=== PATIENT | male | born 2000 | race African-American/Black ===

== ENCOUNTER → 2023-10-12 | Emergency (ER) | payer SELFPAY ==
[~2023-10-12] MED LIST: NA CHLORIDE 0.9% 1,000 ML ONE; ONDANSETRON 4 MG/2 ML VIAL ONE
[2023-10-12 20:55] LABS: Hematocrit 44.9 % (39.6-49.0); Lymphocytes % 27.8 % (15.3-44.8); MCV 80.3 fL (80-100); MPV 8.8 fL (7.6-11.3); Platelets 196 thou/uL (152-406); RBC Red Blood Cell Count 5.59 M/uL (4.33-5.43)
[2023-10-12 20:58] LABS: Protime INR 1.02
[2023-10-12 21:11] LABS: ALT/SGPT 41 U/L (16-61); Albumin 3.8 g/dL (3.4-5.0); Alkaline Phosphatase 70 U/L (45-117); BUN Blood Urea Nitrogen 18 mg/dL (7-18); Bicarbonate 21 mEq/L (21-32); Bilirubin Total 0.4 mg/dL (0.2-1.0); Glomerular Filtration Rate 74 ml/min (=/>90); Glucose Level 154 mg/dL (74-106); Protein, Total 7.9 g/dL (6.4-8.2); Sodium Level 135 mEq/L (136-145)
[2023-10-12 21:23] LABS: AST/SGOT 48 U/L (15-37); Bilirubin Direct < 0.1 mg/dL (0-0.2); Bilirubin Indirect, Calculated ND mg/dL (0.2-0.8)
--- NOTE | 2023-10-13 00:11 | ER ---
Nurse's Notes [facility] Name: Jack Newell Age: 23 yrs Sex: Male : 2000 Arrival Date: 10/12/2023 Time: 20:05 Bed 18 Private MD: Diagnosis: Acute opiate overdose, unintentional overdose Presentation: 10/12 20:23 Chief complaint: EMS states: EMS CALLED BY OTHER INTOXICATED INDIVIDUALS FOR bp RECREATIONAL OD, H/O SAME. [facility] REFUSING TO GIVE PT NAME TO EMS. Coronavirus screen: At this time, the client does not indicate any symptoms associated with coronavirus-19. Ebola Screen: No symptoms or risks identified at this time. Initial Sepsis Screen: Does the patient meet any 2 criteria? No. Patient's initial sepsis screen is negative. Does the patient have a suspected source of infection? No. Patient's initial sepsis screen is negative. Risk Assessment: Do you want to hurt yourself or someone else? Unable to obtain. Onset of symptoms is unknown. Care prior to arrival: Medication(s) given: NARCAN 1MG. 20:23 Method Of Arrival: EMS: [facility] bp 20:23 Acuity: FORTUNATO 3 bp 20:27 Care prior to arrival: IV initiated. 20 GA, in the right antecubital area. as6 Triage Assessment: 20:27 General: Appears in no apparent distress. Behavior is drowsy. Pain: Unable to use pain as6 scale. Does not appear to understand pain scale. Historical: - Allergies: 20:25 No Known Allergies; bp - Immunization history:: Adult Immunizations unknown. - Social history:: Smoking status: unknown. Screenin:20 [facility] ED Fall Risk Assessment (Adult) History of falling in the last 3 months, la4 including since admission No falls in past 3 months (0 pts) Confusion or Disorientation Yes (5 pts) Intoxicated or Sedated No (0 pts) Impaired Gait No (0 pts) Mobility Assist Device Used No (0 pt) Altered Elimination No (0 pt) Score/Fall Risk Level 0 - 2 = Low Risk Oriented to surroundings, Provided non-skid footwear, Hourly rounding (assess needs \\T\\ fall precautionary measures) done. Abuse screen: Denies threats or abuse. Denies injuries from another. Nutritional screening: No deficits noted. Tuberculosis screening: No symptoms or risk factors identified. Assessment: 22:31 Reassessment: No report received on patient. Patient in room sleep on right side off la4 not monitored. Pt aroused by gentle touch and verbal stimulation. Pt able to give his name of "Nate" but states that he does not recall what happened or how he got to the hospital. Pt states that he lives in [place] but got to [place] today for the holidays Patient denies pain at this time. General: Appears in no apparent distress. Behavior is cooperative, appropriate for age. Neuro: Jackson Agitation-Sedation Scale (RASS): 0 - Alert and Calm Level of Consciousness is obeys commands. Cardiovascular: No deficits noted. Denies chest pain, Heart tones S1 S2 Capillary refill < 3 seconds is brisk JVD is absent Patient's skin is warm and dry. Pulses are all present. Edema is absent. Rhythm is sinus rhythm. Respiratory: No deficits noted. Airway is patent Respiratory effort is even, unlabored, Respiratory pattern is regular, symmetrical, Breath sounds are clear bilaterally. GI: No deficits noted. : No deficits noted. Derm: No deficits noted. Musculoskeletal: No deficits noted. 10/13 02:29 Reassessment: No changes from previously documented assessment. Patient and/or family la4 updated on plan of care and expected duration. Pain level reassessed. Friend Nancy Peña here to take patient home Patient states feeling better. Neuro: Jackson Agitation-Sedation Scale (RASS): 0 - Alert and Calm Level of Consciousness is awake, alert, obeys commands, Oriented to person, place, time, situation, Appropriate for age. Cardiovascular: No deficits noted. Respiratory: No deficits noted. Airway is patent Respiratory effort is even, unlabored, Respiratory pattern is regular, symmetrical. Psych: 00:47 [place] Suicide Severity Screening: In the past month, have you wished you were la4 or wished you could go to sleep and not wake up? Patient responds "No." "In the past month, have you actually had any thoughts of killing yourself?" Patient responds "no." "In your lifetime, have you ever done anything, started to do anything, or prepared to do anything to end your life?" Patient responds "no.". Subjective: Patient's mood is euphoric, Delusions are denied, Hallucinations are denied Having thoughts of denies. Objective: Patient is cooperative, Speech is normal, Affect is appropriate, Patient has mutilated themselves by none. Interventions: Patient reassessed during use of restraints. Patient is physically safe. Safety Checks: Door is open. Patient uses Patient uses benzodiazepines. Commitment: none. Vital Signs: 10/12 20:27 BP 120 / 78; Pulse 105; Resp 16; Temp 98; Pulse Ox 98% ; as6 22:20 BP 116 / 80; Pulse 101; Resp 16; Temp 97.7(O); Pulse Ox 99% ; Pain 0/10; la4 22:20 Pain Scale: Adult la4 Sheri Coma Score: 22:20 Eye Response: spontaneous(4). Motor Response: obeys commands(6). Verbal Response: la4 oriented(5). Total: 15. ED Course: 20:06 Patient arrived in ED. jj6 20:09 Jeffrey De Anda MD is Attending Physician. sp4 20:25 Triage completed. bp 20:27 Arm band placed on. as6 22:20 Patient has correct armband on for positive identification. Bed in low position. Side la4 rails up X2. Provided Education on: Pt notified of being in the hospital as well as his time of arrival. Pt states that he did not recall what he was doing prior waking up here. Lives in [place] and came to [place] for the holidays. Reports use of alcohol and taking a xanax. Client placed on continuous cardiac and pulse oximetry monitoring. NIBP monitoring applied. 23:13 Sher Pino RN is Primary Nurse. la4 10/13 00:10 Bryanna Rogers MD is Referral Physician. sp4 Administered Medications: 10/12 22:30 Drug: NS 0.9% IV 1000 ml IV at 125 ml/hr continuous Route: IV; Rate: 125 ml/hr; Site: la4 left antecubital; 22:31 Drug: NS 0.9% IV 1000 ml IV at 1 bolus Per protocol; 1000 mL bolus Route: IV; Rate: 1 la4 bolus; Site: left antecubital; 23:00 Drug: Ondansetron IVP 8 mg IVP once; over 2 minutes Route: IVP; Site: left antecubital; la4 23:14 Not Given (Not required at this timee): naloxone4 mg IVP once la4 Medication: 22:20 VIS not applicable for this client. la4 Outcome: 10/13 00:11 Discharge ordered by . leigh ann 02:30 Patient left the ED. la4 Signatures: Kala Tello FNP-C CAMPUS SAFETY OFFICER-Keithw Herminio Ibarra, RN RN bp Shayy [id number] Teddy Cerna, RN RN as6 Jeffrey De Anda MD MD sp4 Sher Pino RN RN la4
--- NOTE | 2023-10-13 00:12 | EDPHYS ---
Physician Documentation [facility] Name: Jack Newell Age: 23 yrs Sex: Male : 2000 Arrival Date: 10/12/2023 Time: 20:05 Bed 18 Private MD: ED Physician Jeffrey De Anda HPI: 10/12 20:09 This 24 yrs old Male presents to ER via Unassigned with complaints of AMS, ingestion. snw 20:10 This 24 yrs old Black Male presents to ER via Unassigned with complaints of overdose of sp4 unknown substance . 20:09 The patient presents to the emergency department with a history of substance abuse, snw unknown. Onset: The symptoms/episode began/occurred acutely. It is unknown whether or not the patient has recently seen a physician. Pt brought by "friends" from [place]. EMS administered 1mg Narcan, pt awake, confused, lethargic. Historical: - Allergies: 20:25 No Known Allergies; bp - Immunization history:: Adult Immunizations unknown. - Social history:: Smoking status: unknown. ROS: 20:08 Unable to obtain ROS due to altered mental status, snw Exam: 20:08 Head/Face: Normocephalic, atraumatic. Eyes: Pupils equal round and reactive to light, snw extra-ocular motions intact. Lids and lashes normal. Conjunctiva and sclera are non-icteric and not injected. Cornea within normal limits. Periorbital areas with no swelling, redness, or edema. ENT: Nares patent. No nasal discharge, no septal abnormalities noted. Tympanic membranes are normal and external auditory canals are clear. Oropharynx with no redness, swelling, or masses, exudates, or evidence of obstruction, uvula midline. Mucous membranes moist. Neck: Trachea midline, no thyromegaly or masses palpated, and no cervical lymphadenopathy. Supple, full range of motion without nuchal rigidity, or vertebral point tenderness. No Meningismus. Chest/axilla: Normal chest wall appearance and motion. Nontender with no deformity. No lesions are appreciated. 20:08 Respiratory: Lungs have equal breath sounds bilaterally, clear to auscultation and percussion. No rales, rhonchi or wheezes noted. No increased work of breathing, no retractions or nasal flaring. Abdomen/GI: Soft, non-tender, with normal bowel sounds. No distension or tympany. No guarding or rebound. No evidence of tenderness throughout. Back: No spinal tenderness. No costovertebral tenderness. Full range of motion. Skin: Warm, dry with normal turgor. Normal color with no rashes, no lesions, and no evidence of cellulitis. MS/ Extremity: Pulses equal, no cyanosis. Neurovascular intact. Full, normal range of motion. Neuro: Awake and alert, GCS 15, oriented to person, place, time, and situation. Cranial nerves II-XII grossly intact. Motor strength 5/5 in all extremities. Sensory grossly intact. Cerebellar exam normal. Normal gait. Psych: Awake, alert, with orientation to person, place and time. Behavior, mood, and affect are within normal limits. 20:08 Constitutional: The patient appears awake, listless, 20:08 Cardiovascular: Rate: tachycardic, Rhythm: regular, Pulses: no pulse deficits are appreciated, Heart sounds: normal, Vital Signs: 20:27 BP 120 / 78; Pulse 105; Resp 16; Temp 98; Pulse Ox 98% ; as6 22:20 BP 116 / 80; Pulse 101; Resp 16; Temp 97.7(O); Pulse Ox 99% ; Pain 0/10; la4 22:20 Pain Scale: Adult la4 Medora Coma Score: 22:20 Eye Response: spontaneous(4). Motor Response: obeys commands(6). Verbal Response: la4 oriented(5). Total: 15. MDM: 20:09 Patient medically screened. sp4 20:10 Differential diagnosis: ingestion. Data reviewed:. snw 10/13 00:09 Differential Diagnosis altered mental status, sepsis, flu, Intoxication opiate . sp4 Consideration of Admission/Observation Escalation of care including admission/observation considered. ED course: Patient was monitored for 4 hours his vital signs remained stable. Patient is stable for discharge home. Will advise to discontinue opiate abuse or other recreational substance abuse. . 10/12 20:07 Order name: Acetaminophen; Complete Time: 21:32 snw 10/12 20:07 Order name: Basic Metabolic Panel; Complete Time: 21:32 snw 10/12 20:07 Order name: CBC with Diff; Complete Time: :32 snw 10/12 20: Order name: ETOH Level; Complete Time: 21:32 snw 10/12 20:07 Order name: Hepatic Function; Complete Time: 21:32 snw 10/12 20:07 Order name: PT-INR; Complete Time: 21:32 snw 10/12 20:07 Order name: Ptt, Activated; Complete Time: 21:32 snw 10/12 20:07 Order name: Salicylate; Complete Time: 21:32 snw 10/12 20:07 Order name: EKG; Complete Time: 20:08 snw 10/12 20:07 Order name: EKG - Nurse/Tech; Complete Time: 00:46 snw 10/12 20:07 Order name: IV Saline Lock; Complete Time: 20:45 snw 10/12 20:07 Order name: Labs collected and sent; Complete Time: 20:45 snw 10/12 20:07 Order name: Suicide Screening ([place]); Complete Time: 00:46 snw Administered Medications: 10/12 22:30 Drug: NS 0.9% IV 1000 ml IV at 125 ml/hr continuous Route: IV; Rate: 125 ml/hr; Site: la4 left antecubital; 22:31 Drug: NS 0.9% IV 1000 ml IV at 1 bolus Per protocol; 1000 mL bolus Route: IV; Rate: 1 la4 bolus; Site: left antecubital; 23:00 Drug: Ondansetron IVP 8 mg IVP once; over 2 minutes Route: IVP; Site: left antecubital; la4 23:14 Not Given (Not required at this timee): naloxone4 mg IVP once la4 Disposition: 21:10 Co-signature as Attending Physician, Jeffrey De Anda MD I agree with the assessment sp4 and plan of care. I reviewed the patient's care provided by Advanced Practice Provider \\T\\ agree w/ the diagnosis \\T\\ care plan. I personally saw the pt \\T\\ performed a substantive portion of the visit, incldng all aspects of the (History/Exam/Medical Decision Making). Disposition Summary: 10/13/23 00:11 Discharge Ordered Notes: Location: Home sp4 Problem: new sp4 Symptoms: have improved sp4 Condition: Stable sp4 Diagnosis - Acute opiate overdose, unintentional overdose sp4 Followup: sp4 - With: Bryanna Rogers MD - When: 7 - 10 days - Reason: Recheck today's complaints Discharge Instructions: - Discharge Summary Sheet sp4 - Opioid Overdose sp4 Forms: - Patient Portal Instructions sp4 Prescriptions: - Narcan 4 mg/actuation Nasal spray, non-aerosol - spray 1 spray INTRANASAL route every 2 to 3 minutes as needed for opioid sp4 overdose; spray 1 dose into ONE nostril; alternate nostrils w each dose until help arrives; 1 unit; Refills: 0, Product Selection Permitted Signatures: Dispatcher [employer] EDKala Qureshi FNP-C SHIFT NURSE MANAGER-Csnw Herminio Ibarra, RN RN bp Jeffrey De Anda MD MD sp4 Sher Pino RN RN la4
[2023-10-13 04:08] VITALS: BP 116/80; TEMP 97.7; O2SAT 99
== END ==
LOC: ER 20:05 → EDBD 20:05
DX: R41.82 Altered mental status, unspecified (principal); T40.601A Poisoning by unspecified narcotics, accidental (unintentional), initial encounter
CPT/HCPCS: 36415; 80048; 80076; 80143; 80179; 82077; 85025; 85610; 85730; 93005; 96374; 99284; J2405; J7030